=== PATIENT | female | born 1990 | race Caucasian/White ===

== ENCOUNTER 2018-06-30 16:50 | Emergency (ER) | payer SELFPAY ==
--- NOTE | 2018-06-30 17:31 | ED Physician Documentation ---
Upper Respiratory Symptoms - HISTORIAN Historian: patient, paramedics - HPI Stated Complaint: cough x 2 weeks Chief Complaint: Cough/ Upper Respiratory Onset: days ago (14) Duration: intermittent episodes Context: denies: recent foreign travel Associated Symptoms: fever, productive cough - ROS CONST/EYES: weakness CVS/RESP: shortness of breath. denies: chest pain LYMPH: denies: leg swelling GI/: denies: abdominal pain, vomiting, nausea NEURO/PSYCH: denies: fainting, dizziness - PAST HX Lung Disease: none PE Risk Factors: none Surgeries/Procedures: none - SOCIAL HX Smoking History: non-smoker Alcohol Use: none Drug Use: none - FAMILY HX Family History: none - REVIEWED ASSESSMENTS Nursing Assessment Reviewed: Yes Vitals Reviewed: Yes ED Results Lab/Radiology - Orders Orders: ED Orders Category Date Time Status Ibuprofen [Advil] Med 06/30/18 17:21 Discontinued 800 mg PO NOW ONE Upper Respiratory Symptoms - EXAM General Appearance: alert EENT: nml ENT inspection Neck: supple Respiratory: no resp. distress, rhonchi (bibasilar) Abdomen: non-tender, no distention. No: tenderness CVS: reg rate & rhythm, heart sounds normal Skin: color nml, no rash, warm,dry Extremities: non-tender, no edema Neuro/Psych: oriented x3, mood/affect nml Discharge Referrals: Primary Doctor,No [Primary Care Provider] - 2 Days
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
[2018-06-30] MEDS: IBUPROFEN 200 MG TABLET PO ONE ×2 (17:45→18:10)
[2018-06-30 18:00] VITALS: BP 127/84
== END 2018-06-30 18:08 | disposition home or self-care (01) ==
LOC: ED 16:50
DX: T19.2XXA Foreign body in vulva and vagina, initial encounter (principal); X58.XXXA Exposure to other specified factors, initial encounter; Y93.9 Activity, unspecified; Y92.149 Unspecified place in prison as the place of occurrence of the external cause
CPT/HCPCS: 99282; 99283